=== PATIENT | female | born 1945 | race Caucasian/White ===

== ENCOUNTER 2016-11-07 13:35 | Outpatient (CLI) | payer MEDICARE ==
[2016-11-07 14:22] LABS: Bilirubin Negative (Negative); Blood, Urine Negative (Negative); Glucose, Urine (Dipstick) Negative (Negative); Ketone, Urine Negative (Negative); Nitrite Negative (Negative); Protein, Urine (Dipstick) Negative (Neg-Trace); Urobilinogen 0.2 mg/dL (0.2-1.0)
[2016-11-07 14:24] LABS: Bacteria/HPF Rare-Few HPF (None Seen); RBC/HPF None Seen HPF (0-3); WBC/HPF 0-3 HPF (0-3)
== END 2016-11-07 13:36 | disposition home or self-care (01) ==
LOC: NAV LAB 13:35
PROVIDERS: ATTEND Urology
DX: N39.0 Urinary tract infection, site not specified (principal); N39.41 Urge incontinence
CPT/HCPCS: 81001; 87086

== ENCOUNTER 2016-12-25 10:54 | Outpatient (CLI) | payer MEDICARE ==
[2016-12-25 11:42] LABS: Bilirubin Negative (Negative); Blood, Urine Moderate (Negative); Glucose, Urine (Dipstick) Negative (Negative); Ketone, Urine Negative (Negative); Nitrite Negative (Negative); Protein, Urine (Dipstick) Trace mg/dL (Neg-Trace); Urobilinogen 0.2 mg/dL (0.2-1.0)
[2016-12-25 12:08] LABS: Bacteria/HPF 2+ HPF (None Seen)
== END 2016-12-25 10:55 | disposition home or self-care (01) ==
LOC: NAV LAB 10:54
PROVIDERS: ATTEND Urology
DX: R35.0 Frequency of micturition (principal)
CPT/HCPCS: 81001; 87077; 87086

== ENCOUNTER 2017-02-13 09:38 | Outpatient (CLI) | payer MEDICARE ==
[2017-02-13 10:08] LABS: Bilirubin Negative (Negative); Blood, Urine Negative (Negative); Clarity Slightly Cloudy (Clear); Glucose, Urine (Dipstick) Negative (Negative); Leukocyte Small (Negative); Nitrite Positive (Negative); Protein, Urine (Dipstick) Negative (Neg-Trace); Urobilinogen 0.2 mg/dL (0.2-1.0); pH, Urine 6.5 (5.0-9.0)
[2017-02-13 10:18] LABS: Bacteria/HPF 2+ HPF (None Seen); RBC/HPF None Seen HPF (0-3); Squamous Epithelial 0-3 HPF (0-3); WBC/HPF 21-50 HPF (0-3)
[2017-02-13 10:19] LABS: Other Microscopic Description NO
== END 2017-02-13 09:39 | disposition home or self-care (01) ==
LOC: NAV LAB 09:38
PROVIDERS: ATTEND Urology
DX: N39.0 Urinary tract infection, site not specified (principal)
CPT/HCPCS: 81001; 87086

== ENCOUNTER 2017-02-13 12:17 | Inpatient (IN) | payer MEDICARE ==
[2017-02-13] MEDS ORDERED: Sodium Chloride 0.9% 1,000 ML ONE ×2 (12:41→13:37)
[2017-02-13] MEDS ORDERED: Sodium Chloride 0.9% 100 ML ONE (13:08)
[2017-02-13] MEDS ORDERED: cefTRIAXone\\ROCEPHIN 2 GM VIAL ONE (13:08)
[2017-02-13 13:17] LABS: Mean Corpuscular HGB CONC 32.5 g/dL (32.0-36.0); Mean Corpuscular Volume 86.1 fl (81.0-99.0); Mean Platelet Volume 6.7 fL (7.4-10.4); Platelet Count 385 thou/uL (130-400); RBC Distribution Width 15.5 % (11.5-14.5); Red Blood Cell (RBC) Count 4.29 mill/uL (4.20-5.40); White Blood Cell (WBC) Count 22.3 thou/uL (4.8-10.8)
[2017-02-13] MEDS ORDERED: Acetaminophen 500 MG TAB ONE (13:20)
[2017-02-13 13:24] LABS: ALT (SGPT) 13 U/L (0-55); AST (SGOT) 18 U/L (5-34); Albumin 3.5 g/dL (3.4-4.8); Alkaline Phosphatase 104 U/L (40-150); Anion Gap 16 mmol/L (10-20); BUN (Urea Nitrogen) 21 mg/dL (9.8-20.1); Bilirubin, Total 0.4 mg/dL (0.2-1.2); Calc. Creatinine Clearance 0 mL/min (70-130); Calcium 9.7 mg/dL (7.8-10.44); Carbon Dioxide 25 mmol/L (23-31); Chloride 101 mmol/L (98-107); Estimated GFR-MDRD 51; Globulin 3.6 g/dL (2.4-3.5); Glucose 112 mg/dL (83-110); Potassium 4.2 mmol/L (3.5-5.1); Protein, Total 7.1 g/dL (5.8-8.1); Sodium 138 mmol/L (136-145)
[2017-02-13 13:34] LABS: Anisocytosis SLIGHT = 6-15 cells (100X) (0-5/hpf); Band 9 % (5-11); Lymphocytes 7 % (21-51); MDiff Complete? YES; Monocytes 2 % (0-10); Neutrophil 82 % (42-75); PLT Morphology Comment Appears Adequate
[2017-02-13] MEDS: Sodium Chloride 0.9% 1,000 ML IV SCH ×3 (15:21→22:24)
[2017-02-13 16:21] VITALS: BMI 29.6
[2017-02-13 18:35] LABS: Anion Gap 15 mmol/L (10-20); Globulin 2.7 g/dL (2.4-3.5)
[2017-02-13 18:38] LABS: ALT (SGPT) 8 U/L (0-55); AST (SGOT) 14 U/L (5-34); Albumin 2.7 g/dL (3.4-4.8); Alkaline Phosphatase 78 U/L (40-150); BUN (Urea Nitrogen) 17 mg/dL (9.8-20.1); Bilirubin, Total 0.2 mg/dL (0.2-1.2); Calc. Creatinine Clearance 71 mL/min (70-130); Carbon Dioxide 20 mmol/L (23-31); Chloride 109 mmol/L (98-107); Estimated GFR-MDRD 67; Glucose 113 mg/dL (83-110); Potassium 3.7 mmol/L (3.5-5.1); Protein, Total 5.4 g/dL (5.8-8.1); Sodium 140 mmol/L (136-145)
[2017-02-13] MEDS ORDERED: Ondansetron ODT 4 MG TAB PO PRN (19:35)
[2017-02-13] MEDS ORDERED: Nitroglycerin 0.4 MG TAB (25 Tab Bottle) SL PRN (19:37)
[2017-02-13] MEDS: Famotidine 20 MG TAB PO SCH (20:18)
[2017-02-13] MEDS: Gabapentin 300 MG CAP PO SCH (20:18)
[2017-02-13] MEDS: Ciprofloxacin 500 MG TAB PO SCH (20:19)
[2017-02-14 05:16] LABS: #Eosinphils 0.1 thou/uL (0.0-0.7); #Monocytes 0.6 thou/uL (0.11-0.59); #Neutrophils 10.9 thou/uL (1.40-6.50); %Basophils 0.2 % (0.0-1.0); %Eosinophils 1.1 % (0.0-10.0); %Lymphocytes 14.7 % (21.0-51.0); %Monocytes 4.4 % (0.0-10.0); %Neutrophils 79.6 % (42.0-75.0); Hemoglobin 9.5 g/dL (12.0-16.0); Mean Corpuscular HGB CONC 31.8 g/dL (32.0-36.0); Mean Corpuscular Hemoglobin 27.4 pg (27.0-31.0); Mean Corpuscular Volume 86.2 fl (81.0-99.0); Mean Platelet Volume 6.6 fL (7.4-10.4); Platelet Count 278 thou/uL (130-400); RBC Distribution Width 15.4 % (11.5-14.5); Red Blood Cell (RBC) Count 3.47 mill/uL (4.20-5.40); White Blood Cell (WBC) Count 13.7 thou/uL (4.8-10.8)
[2017-02-14 05:27] LABS: Lactic Acid 0.9 mmol/L (0.5-2.2)
[2017-02-14 05:31] LABS: Anion Gap 13 mmol/L (10-20); BUN (Urea Nitrogen) 12 mg/dL (9.8-20.1); Calc. Creatinine Clearance 78 mL/min (70-130); Carbon Dioxide 23 mmol/L (23-31); Chloride 108 mmol/L (98-107); Estimated GFR-MDRD 74; Glucose 108 mg/dL (83-110); Potassium 3.9 mmol/L (3.5-5.1); Sodium 140 mmol/L (136-145)
[2017-02-14] MEDS: Sodium Chloride 0.9% 1,000 ML IV SCH ×2 (05:33→13:39)
[2017-02-14] MEDS ORDERED: LYCOPENE PO SCH (09:00)
[2017-02-14] MEDS ORDERED: [UNRECOGNIZED DRUG - OTHER] PO SCH (09:00)
[2017-02-14] MEDS ORDERED: LUT PO SCH (09:00)
[2017-02-14] MEDS ORDERED: MULTIVIT MIN PO SCH (09:00)
[2017-02-14] MEDS: Gabapentin 300 MG CAP PO SCH ×2 (09:20→20:25)
[2017-02-14] MEDS: Carvedilol 3.125 MG TAB PO SCH ×2 (09:20→17:27)
[2017-02-14] MEDS: Multivitamin W/ Minerals 1 TAB PO SCH (09:20)
[2017-02-14] MEDS: Estradiol 1 MG TAB PO SCH (09:20)
[2017-02-14] MEDS: Famotidine 20 MG TAB PO SCH ×2 (09:20→20:24)
[2017-02-14] MEDS: Ciprofloxacin 500 MG TAB PO SCH ×2 (12:29→20:24)
[2017-02-14] MEDS: cefTRIAXone\\ROCEPHIN 2 GM in Sodium Chloride 0.9% 100 ML IVPB SCH (12:36)
[2017-02-14] MEDS ORDERED: Gabapentin 300 MG CAP PO SCH (15:00)
[2017-02-14] MEDS ORDERED: rOPINIRole HCl 2 MG TAB PO SCH (21:00)
[2017-02-15 05:17] LABS: #Basophils 0.1 thou/uL (0.0-0.2); #Eosinphils 0.2 thou/uL (0.0-0.7); #Lymphocytes 2.2 thou/uL (1.20-3.40); #Monocytes 0.7 thou/uL (0.11-0.59); #Neutrophils 8.2 thou/uL (1.40-6.50); %Basophils 0.9 % (0.0-1.0); %Eosinophils 1.7 % (0.0-10.0); %Lymphocytes 19.1 % (21.0-51.0); %Monocytes 6.5 % (0.0-10.0); %Neutrophils 71.8 % (42.0-75.0); Mean Corpuscular Hemoglobin 27.5 pg (27.0-31.0); Mean Platelet Volume 6.8 fL (7.4-10.4); Platelet Count 335 thou/uL (130-400); RBC Distribution Width 15.7 % (11.5-14.5); Red Blood Cell (RBC) Count 3.62 mill/uL (4.20-5.40); White Blood Cell (WBC) Count 11.4 thou/uL (4.8-10.8)
[2017-02-15] MEDS: Famotidine 20 MG TAB PO SCH (08:46)
[2017-02-15] MEDS: Multivitamin W/ Minerals 1 TAB PO SCH (08:47)
[2017-02-15] MEDS: Carvedilol 3.125 MG TAB PO SCH (08:47)
[2017-02-15] MEDS: Gabapentin 300 MG CAP PO SCH (08:47)
[2017-02-15] MEDS: Ciprofloxacin 500 MG TAB PO SCH (08:47)
[2017-02-15] MEDS: Estradiol 1 MG TAB PO SCH (08:47)
[2017-02-15 11:21] VITALS: BP 151/82; TEMP 97.5
[2017-02-15] MEDS: cefTRIAXone\\ROCEPHIN 2 GM in Sodium Chloride 0.9% 100 ML IVPB SCH (12:00)
--- NOTE | 2017-02-15 12:10 | PRG ---
DATE OF SERVICE: 02/14/2017 SUBJECTIVE: The patient feels better, no nausea or vomiting, good appetite. No fever or chills, in creased strength, no dizziness or lightheadedness. She is asking when she can be discharged home. OBJECTIVE: VITAL SIGNS: Blood pressure is 137/67, O2 sats 98%, respirations 18, pulse 85, afebrile. LUNGS: Clear. CARDIAC: Shows regular rhythm. LABORATORY: Shows white count 13,700, hematocrit 29, hemoglobin 9.5. Lactate is down to 0.9. Sodi um 140, potassium 3.9, chloride 108, bicarbonate 23, BUN 12, creatinine 0.77. Urine culture is stil l pending. ASSESSMENT: Resolved sepsis, resolving urinary tract infection, stable hypertension, coronary arter y disease, persistent reflux, persistent restless leg syndrome, sleep apnea with refusal of CPAP. PLAN: Change Ropinirole to 1 mg at the afternoon and 3 mg at night. Continue Rocephin and Cipro un til cultures return and discontinue Rocephin afterwards. Monitor on oral Cipro. Discontinue IV flu ids. Possibly discharge tomorrow.
[2017-02-15] MEDS ORDERED: rOPINIRole HCl 2 MG TAB PO SCH (15:00)
--- NOTE | 2017-02-15 19:46 | HP ---
DATE OF ADMISSION: 02/13/2017 REASON CHIEF COMPLAINT: Fever, chills, urinary tract infection, sepsis. HISTORY OF PRESENT ILLNESS: Patient is a 71-year-old white female with history of recurrent urinary tract infections and episodes of pyelonephritis and sepsis associated with initial urinary retentio n with the last admission several months ago to [facility]. She had been doing well, been followed up with Dr. Newby with no evidence of urinary retention on last visit, but began to have dysur ia on the date of admission, was contacted Dr. Newby's office, had urine culture done, but lynette rtly after having it done she began to have chills and fever, was brought to the emergency room, was found to have temperature to 102. White count was 22,000, hematocrit was 36, hemoglobin 12. Lacti c acid was 2.5. However, apparently Dr. Dr. Newby was contacted by the ER doctor and she felt she could be admitted down here just with 24 hours IV antibiotics and should respond appropriately. She was given 2 liters of saline and was admitted to the floor. However, after admission to the [facility] her lactic acid went up further to 2.9. She continued to have fever and chills; however, vital signs only increased to 102/50. She was given another liter of saline as her BNP was normal at 103 and her blood pressure did improve back again 143/58. She was given IV Rocephin, started on oral C ipro in the emergency room and this was continued. Cultures were pending. PAST MEDICAL HISTORY: As mentioned above, was remarkable for recurrent urinary tract infection, his tory of nephrolithiasis, followed by Dr. Dr. Newby, history of coronary artery disease, myocar dial infarction, hypertension, gastroesophageal reflux. Positive for sleep apnea. PAST SURGICAL HISTORY: Positive for bilateral SI joint injection being followed by Dr. Segovia, l umbar sacral laminectomy and a spinal cord stimulator trial with no improvement. Surgical history i s also positive for total abdominal hysterectomy and bladder suspension 73, bladder wash and cystosc opy 12/[address] Newby. FAMILY MEDICAL HISTORY: Positive for coronary disease and hypertension. SOCIAL HISTORY: She is nonsmoker, nondrinker. ALLERGIES: She has history of allergies to IBUPROFEN only. REVIEW OF SYSTEMS: HEENT: She has recurrent headaches well controlled. She has no change in her v ision or hearing, no hoarseness or dysphagia. Pulmonary: She denies cough, sputum production, pneu monia, asthma, tuberculosis. Cardiovascular: She denies chest pain at this time, shortness of nathanael th, but has had recurrent chest pain in the past controlled with nitroglycerin, has coronary cathete rization has shown nonsurgical disease after initial stent placement years ago. PHYSICAL EXAMINATION: GENERAL: Patient is an elderly white female, appears slightly lethargic, but responds appropriately , is in no acute distress, able to give history and answer questions. VITAL SIGNS: Show her to have a blood pressure of mentioned above 102/50, but improved by my visit to 143/58, temperature was 96, pulse is 86, respirations 20, O2 sats 96%. HEENT: Pupils are equal, round, and react to light and accommodation. Sclerae are anicteric. Conj unctivae pale. Oral mucous membranes well hydrated. NECK: Supple. There are no nodes or masses. JVP is not elevated. LUNGS: Clear. CARDIAC: Regular rhythm. No gallops or murmurs. ABDOMEN: Soft, nontender with no masses or organomegaly. SKIN/EXTREMITIES: Display no edema, clubbing, cyanosis. NEUROLOGIC: Shows normal sensation, strength in all extremities. ASSESSMENT AND PLAN: Patient is a 71-year-old white female with a history of recurrent urinary trac t infections secondary to mixed stress and urgency incontinence with no evidence of renal lithiasis or hydronephrosis or cancer on cystoscopy and CT scan, being followed by Dr. Newby with most r ecent admission 3 months ago for urinary tract infection and sepsis. This time she presents with si milar symptoms, acute onset of dysuria, fever, chills, elevated lactate, leukocytosis and hypotensio n consistent with sepsis, early septic shock secondary to probable recurrent urinary tract infection . She has been admitted to the hospital, treated with sepsis protocol with 3 liters of saline great er than 30 mL per kilogram, has been started on Rocephin and Cipro, appears to be stable at this sumit e. Her renal function at this time stable with initial creatinine 0.84, glucose 113. Sodium 140, p otassium 3.7, chloride 109, bicarbonate 20, BUN 17. Magnesium level 0.2, serum total protein 5.4, a lbumin 2.7. White count as mentioned above was 22,300, hematocrit 36, hemoglobin 12. Urine culture is pending. Chest x-ray not been done. Septic shock, most likely due to recurrent urinary tract infection in a patient with mixed incontine nce who will be continued on IV fluids at 125 mL an hour of normal saline and has been given at 30 m L/kg protocol sepsis, fluid challenge. Appears to respond, will be continued on Rocephin and Cipro, as she has responded this past until cultures return. Blood cultures are pending. We will restart her home medications for coronary disease, but appeared to have no evidence of ischemia at this sumit e. We will also continue medications for reflux and for restless leg syndrome. We will discuss uro logical further evaluation with patient when stable.
--- NOTE | 2017-02-15 23:35 | DIS ---
DATE OF ADMISSION: 02/13/2017 DATE OF DISCHARGE: 02/15/2017 FINAL DIAGNOSES: 1. Sepsis secondary to urinary tract infection secondary to Klebsiella with resolved septic shock o n IV fluids for sepsis protocol and IV antibiotics, now on oral antibiotics and doing well. 2. Coronary disease, status post stent and medical treatment with no symptoms. 3. Degenerative disk disease being followed by Dr. Segovia with no pain. 4. Recurrent mixed stress and urge incontinence being followed by Dr. Newby with possible sec ond opinion requested by patient with Dr. Vasquez. MEDICATIONS ON DISCHARGE: Include carvedilol 3.125 twice daily, aspirin 81 daily, Cipro 500 twice d aily for a full 10-day course, estradiol 1 mg daily, famotidine 20 twice daily, gabapentin 600 and a t 3:00 and 1800 at night, 300 in the morning, Protonix 40 twice daily, nitroglycerin sublingual as n eeded, propranolol 3 mg at night 1 mg at 3:00 p.m. HOSPITAL COURSE: Patient is a 71-year-old white female who presents with fever, chills, leukocytosi s and elevated lactate of 2.1., who was started on sepsis protocol in the emergency room and transfe rred to the floor. She did have increased lactate, was given another liter of saline, when blood pr essure dropped to 102/50, but then began to improve, was continued on Rocephin and Cipro for probabl e sepsis secondary to urinary tract infection. Blood cultures returned negative, but urine culture did return Klebsiella sensitive to the Rocephin and Cipro. Rocephin was discontinued. Her white co unt improved to 13,700 and to 11,400. Hemoglobin decreased from 12 to 10, but then remains 12 to 9. 5 and then stabilized at 10, hematocrit was 31. Renal function remained normal with a BUN of 12, cr eatinine 0.77 on discharge. Sodium 140, potassium 3.9, chloride 108, bicarbonate 23. Lactate as me ntioned above, increased to 2.9, but then decreased to 0.9 on discharge. The patient was eating wel l, ambulating at vee. Lungs were clear. Cardiac examination showed regular rhythm. No gallops or murmurs. Cardiac enzymes returned negative. BNP was slightly elevated at 103. ASSESSMENT: 1. Resolved septic shock secondary to urinary tract infection with Klebsiella in a patient with rec urrent mixed stress and urge incontinence. 2. History of coronary artery disease, status post stent. No evidence of recurrent ischemia. 3. Severe degenerative disk disease, chronic pain in the back being followed by Dr. Segovia with occasional epidural steroid injection. 4. Severe reflux, on Protonix. 5. Sleep apnea and restless leg syndrome, refusal of CPAP, on ropinirole. PLAN: 1. Discharge home on Cipro 500 twice daily for a full 10-day course. 2. Follow up with urologist either Dr. Newby or Dr. Vasquez for further evaluation with fitz r studies of the bladder. 3. Continue all home medications.
== END 2017-02-15 12:30 | disposition home or self-care (01) | DRG 871 ==
LOC: NAV ERS 12:17 → NAV ACUTE 14:40
PROVIDERS: ADMIT Internal Medicine; ATTEND Internal Medicine
DX: A41.9 Sepsis, unspecified organism (principal); R65.21 Severe sepsis with septic shock; N39.0 Urinary tract infection, site not specified; B96.1 Klebsiella pneumoniae [K. pneumoniae] as the cause of diseases classified elsewhere; N39.46 Mixed incontinence; I25.10 Atherosclerotic heart disease of native coronary artery without angina pectoris; I25.2 Old myocardial infarction; I10 Essential (primary) hypertension; K21.9 Gastro-esophageal reflux disease without esophagitis; G47.30 Sleep apnea, unspecified; G25.81 Restless legs syndrome; Z88.8 Allergy status to other drugs, medicaments and biological substances; Z95.5 Presence of coronary angioplasty implant and graft
CPT/HCPCS: 36415; 80048; 80053; 81001; 83605; 83880; 85025; 87040; 87077; 87086; 87186; A4216; J0696; J7050

== ENCOUNTER 2017-02-24 08:36 | Emergency (ER) | payer MEDICARE ==
[2017-02-24] MEDS ORDERED: diphenhydrAMINE HCl 25 MG CAP ONE (09:07)
== END 2017-02-24 09:50 | disposition home or self-care (01) ==
LOC: NAV ERS 08:36
DX: T78.3XXA Angioneurotic edema, initial encounter (principal); I25.10 Atherosclerotic heart disease of native coronary artery without angina pectoris; Z79.899 Other long term (current) drug therapy; Z79.82 Long term (current) use of aspirin
CPT/HCPCS: 99283

== ENCOUNTER 2017-04-09 09:47 | Outpatient (CLI) | payer MEDICARE ==
[2017-04-09 10:12] LABS: #Basophils 0.1 thou/uL (0.0-0.2); #Eosinphils 0.1 thou/uL (0.0-0.7); #Lymphocytes 1.3 thou/uL (1.20-3.40); #Monocytes 0.7 thou/uL (0.11-0.59); #Neutrophils 11.2 thou/uL (1.40-6.50); %Basophils 0.5 % (0.0-1.0); %Eosinophils 0.7 % (0.0-10.0); %Monocytes 4.9 % (0.0-10.0); Hemoglobin 10.3 g/dL (12.0-16.0); Mean Corpuscular HGB CONC 31.2 g/dL (32.0-36.0); Mean Corpuscular Hemoglobin 26.2 pg (27.0-31.0); Platelet Count 306 thou/uL (130-400); RBC Distribution Width 13.8 % (11.5-14.5); Red Blood Cell (RBC) Count 3.94 mill/uL (4.20-5.40); White Blood Cell (WBC) Count 13.4 thou/uL (4.8-10.8)
[2017-04-09 10:14] LABS: Lactic Acid 1.7 mmol/L (0.5-2.2)
[2017-04-09 10:19] LABS: Anion Gap 15 mmol/L (10-20); BUN (Urea Nitrogen) 17 mg/dL (9.8-20.1); Calc. Creatinine Clearance 0 mL/min (70-130); Calcium 8.9 mg/dL (7.8-10.44); Carbon Dioxide 23 mmol/L (23-31); Chloride 100 mmol/L (98-107); Estimated GFR-MDRD 72; Glucose 108 mg/dL (83-110); Potassium 4.2 mmol/L (3.5-5.1); Sodium 134 mmol/L (136-145)
[2017-04-09 11:50] LABS: Bilirubin Negative (Negative); Blood, Urine Negative (Negative); Clarity Clear (Clear); Glucose, Urine (Dipstick) Negative (Negative); Leukocyte Negative (Negative); Nitrite Negative (Negative); Protein, Urine (Dipstick) Negative (Neg-Trace); Urobilinogen 0.2 mg/dL (0.2-1.0)
== END 2017-04-09 09:48 | disposition home or self-care (01) ==
LOC: NAVSJIPCSP 09:47 → NAV LAB 09:48
PROVIDERS: ATTEND Internal Medicine
DX: N39.0 Urinary tract infection, site not specified (principal)
CPT/HCPCS: 36415; 80048; 81003; 83605; 85025; 87086

== ENCOUNTER 2017-06-14 07:23 | Emergency (ER) | payer MEDICARE ==
[2017-06-14] MEDS ORDERED: Albuterol Sulfate 2.5 mg/0.5 ml Neb ONE (07:36)
[2017-06-14] MEDS ORDERED: Sodium Chloride 0.9% 1,000 ML ONE ×2 (08:13→10:01)
[2017-06-14] MEDS ORDERED: Acetaminophen 500 MG TAB ONE (08:25)
[2017-06-14 08:26] LABS: #Eosinphils 0.1 thou/uL (0.0-0.7); #Monocytes 0.5 thou/uL (0.11-0.59); #Neutrophils 11.8 thou/uL (1.40-6.50); %Basophils 0.3 % (0.0-1.0); %Eosinophils 0.6 % (0.0-10.0); %Lymphocytes 7.2 % (21.0-51.0); %Monocytes 3.3 % (0.0-10.0); %Neutrophils 88.5 % (42.0-75.0); Hemoglobin 11.1 g/dL (12.0-16.0); Mean Corpuscular HGB CONC 30.6 g/dL (32.0-36.0); Mean Corpuscular Hemoglobin 25.1 pg (27.0-31.0); Mean Platelet Volume 6.6 fL (7.4-10.4); Platelet Count 342 thou/uL (130-400); RBC Distribution Width 15.6 % (11.5-14.5); Red Blood Cell (RBC) Count 4.42 mill/uL (4.20-5.40); White Blood Cell (WBC) Count 13.4 thou/uL (4.8-10.8)
[2017-06-14 08:44] LABS: Troponin I 0.012 ng/mL (< 0.028)
--- NOTE | 2017-06-14 08:45 | RAD ---
CHEST RADIOGRAPH SINGLE VIEW COMPARISON: 10/31/2016 INDICATION: Fever. FINDINGS: There are bibasilar patchy densities at each lung. The cardiac silhouette is accentuated by portabl e technique. Mild vascular prominence. There is osseous degenerative change. IMPRESSION: Mild bibasilar patchy opacities. This could relate to edema or pneumonitis. Consider a two-view est radiograph as follow-up. POS: [facility]
[2017-06-14 08:48] LABS: Bilirubin Negative (Negative); Blood, Urine Negative (Negative); Clarity Clear (Clear); Glucose, Urine (Dipstick) Negative (Negative); Leukocyte Negative (Negative); Nitrite Negative (Negative); Protein, Urine (Dipstick) Negative (Neg-Trace); Specific Gravity, Urine 1.015 (1.005-1.030); Urobilinogen 0.2 mg/dL (0.2-1.0)
[2017-06-14 08:49] LABS: ALT (SGPT) 12 U/L (8-55); AST (SGOT) 25 U/L (5-34); Albumin 3.8 g/dL (3.4-4.8); Alkaline Phosphatase 140 U/L (40-150); Anion Gap 18 mmol/L (10-20); BUN (Urea Nitrogen) 16 mg/dL (9.8-20.1); Bilirubin, Total 0.4 mg/dL (0.2-1.2); Calc. Creatinine Clearance 0 mL/min (70-130); Carbon Dioxide 24 mmol/L (23-31); Chloride 100 mmol/L (98-107); Estimated GFR-MDRD 63; Globulin 3.7 g/dL (2.4-3.5); Glucose 114 mg/dL (83-110); Potassium 4.4 mmol/L (3.5-5.1); Protein, Total 7.5 g/dL (6.0-8.3); Sodium 138 mmol/L (136-145)
[2017-06-14] MEDS ORDERED: cefTRIAXone\\ROCEPHIN 2 GM VIAL ONE (08:50)
[2017-06-14] MEDS ORDERED: Sodium Chloride 0.9% 0 ML ONE (08:50)
[2017-06-14] MEDS ORDERED: Sodium Chloride 0.9% 100 ML ONE ×2 (08:52→09:51)
[2017-06-14] MEDS ORDERED: Azithromycin 500 MG VIAL ONE ×2 (09:51→10:00)
[2017-06-14] MEDS ORDERED: Sodium Chloride 0.9% 250 ML 250 ML ONE (10:00)
--- NOTE | 2017-06-14 10:27 | CT ---
CT ARTERIOGRAM CHEST WITH IV CONTRAST AND 3D MIP IMAGING: HISTORY: Dyspnea. FINDINGS: There is good contrast opacification of the pulmonary arteries and thoracic aorta with bovine origin of the great vessels from the aortic arch. Dense infiltrate is present at the left perihilar locat ion in the left lung base. Mild patchy infiltrate is present centrally within the right lung. No p leural fluid, pneumothorax, or mediastinal adenopathy are apparent. IMPRESSION: 1. No Ct evidence of pulmonary embolus. 2. Patchy bilateral infiltrates. Clinical correlation regarding other signs and symptoms of multif ocal pneumonitis is required. POS: [facility]
== END 2017-06-14 10:54 | disposition short-term general hospital (02) ==
LOC: NAV ERS 07:23
DX: A41.9 Sepsis, unspecified organism (principal); J18.9 Pneumonia, unspecified organism; I11.9 Hypertensive heart disease without heart failure; I25.10 Atherosclerotic heart disease of native coronary artery without angina pectoris; I25.2 Old myocardial infarction; Z79.82 Long term (current) use of aspirin; Z79.899 Other long term (current) drug therapy
CPT/HCPCS: 36415; 71010; 71275; 80053; 81003; 82553; 83605; 83880; 84484; 85025; 85379; 87040; 87081; 87086; 87430; 93005; 94640; 94760; 96360; 96361; 96365; 96367; J0456; J0696; J7050; J7611

== ENCOUNTER 2017-07-06 16:16 | Emergency (ER) | payer MEDICARE ==
[2017-07-06 17:06] LABS: Bilirubin Negative (Negative); Blood, Urine Negative (Negative); Clarity Clear (Clear); Glucose, Urine (Dipstick) Negative (Negative); Leukocyte Negative (Negative); Nitrite Negative (Negative); Protein, Urine (Dipstick) Negative (Neg-Trace); Urobilinogen 0.2 mg/dL (0.2-1.0)
--- NOTE | 2017-07-06 17:08 | RAD ---
PORTABLE SEMIUPRIGHT FRONTAL CHEST RADIOGRAPH 07/06/17 COMPARISON: 06/14/17. HISTORY: Fever and cough. FINDINGS: There is lobulation and elevation of right hemidiaphragm, stable. heart and mediastinal contours wit hin normal limits. No pneumothorax, pleural fluid, focal consolidation or alveolar edema. IMPRESSION: No acute findings. POS: [facility]
[2017-07-06] MEDS ORDERED: Acetaminophen 500 MG TAB ONE (17:10)
[2017-07-06] MEDS ORDERED: Sodium Chloride 0.9% 1,000 ML ONE (17:13)
[2017-07-06 17:20] LABS: ALT (SGPT) 12 U/L (8-55); AST (SGOT) 16 U/L (5-34); Albumin 3.9 g/dL (3.4-4.8); Alkaline Phosphatase 100 U/L (40-150); Anion Gap 18 mmol/L (10-20); BUN (Urea Nitrogen) 18 mg/dL (9.8-20.1); Bilirubin, Total 0.7 mg/dL (0.2-1.2); Calc. Creatinine Clearance 0 mL/min (70-130); Calcium 9.1 mg/dL (7.8-10.44); Carbon Dioxide 22 mmol/L (23-31); Chloride 101 mmol/L (98-107); Estimated GFR-MDRD 65; Globulin 3.3 g/dL (2.4-3.5); Glucose 100 mg/dL (83-110); Potassium 4.2 mmol/L (3.5-5.1); Protein, Total 7.2 g/dL (6.0-8.3); Sodium 137 mmol/L (136-145)
[2017-07-06 17:25] LABS: Hemoglobin 11.4 g/dL (12.0-16.0); Lymphocytes 4 % (21-51); MDiff Complete? YES; Mean Corpuscular HGB CONC 30.6 g/dL (32.0-36.0); Mean Corpuscular Hemoglobin 24.7 pg (27.0-31.0); Mean Corpuscular Volume 80.9 fl (81.0-99.0); Mean Platelet Volume 6.5 fL (7.4-10.4); Monocytes 3 % (0-10); Neutrophil 92 % (42-75); Platelet Count 352 thou/uL (130-400); RBC Distribution Width 15.4 % (11.5-14.5); Reactive Lymphocytes 1 % (0-10); Stomatocytes SLIGHT = 2-5 cells (100X) (0-1/hpf); White Blood Cell (WBC) Count 22.4 thou/uL (4.8-10.8)
[2017-07-06] MEDS ORDERED: Piperacillin/Tazobactam 4.5 GM in Sodium Chloride 0.9% 100 ML IVPB SCH ×4 (18:00)
== END 2017-07-06 19:00 | disposition short-term general hospital (02) ==
LOC: NAV ERS 16:16
DX: A41.9 Sepsis, unspecified organism (principal); Z79.82 Long term (current) use of aspirin; Z79.899 Other long term (current) drug therapy; Z87.440 Personal history of urinary (tract) infections; Z87.01 Personal history of pneumonia (recurrent)
CPT/HCPCS: 71010; 80053; 81003; 83605; 85025; 87040; 87077; 87149; 87186; 96374; 99285; J2543; J7050

== ENCOUNTER 2017-08-30 12:34 | Emergency (ER) | payer MEDICARE ==
[2017-08-30] MEDS ORDERED: Sodium Chloride 0.9% 1,000 ML ONE (12:59)
[2017-08-30 13:16] LABS: #Basophils 0.1 thou/uL (0.0-0.2); #Lymphocytes 1.5 thou/uL (1.20-3.40); #Monocytes 1.2 thou/uL (0.11-0.59); #Neutrophils 19.2 thou/uL (1.40-6.50); %Basophils 0.3 % (0.0-1.0); %Lymphocytes 6.8 % (21.0-51.0); %Monocytes 5.4 % (0.0-10.0); %Neutrophils 87.6 % (42.0-75.0); Hemoglobin 10.5 g/dL (12.0-16.0); Mean Corpuscular HGB CONC 30.3 g/dL (32.0-36.0); Mean Corpuscular Hemoglobin 25.3 pg (27.0-31.0); Mean Corpuscular Volume 83.6 fl (81.0-99.0); Mean Platelet Volume 6.8 fL (7.4-10.4); Platelet Count 383 thou/uL (130-400); RBC Distribution Width 14.2 % (11.5-14.5); Red Blood Cell (RBC) Count 4.14 mill/uL (4.20-5.40); White Blood Cell (WBC) Count 21.9 thou/uL (4.8-10.8)
[2017-08-30 13:29] LABS: ALT (SGPT) 16 U/L (8-55); AST (SGOT) 22 U/L (5-34); Albumin 3.9 g/dL (3.4-4.8); Alkaline Phosphatase 113 U/L (40-150); Anion Gap 18 mmol/L (10-20); BUN (Urea Nitrogen) 21 mg/dL (9.8-20.1); Bilirubin, Total 0.4 mg/dL (0.2-1.2); Calc. Creatinine Clearance 0 mL/min (70-130); Calcium 9.2 mg/dL (7.8-10.44); Carbon Dioxide 23 mmol/L (23-31); Chloride 100 mmol/L (98-107); Estimated GFR-MDRD 66; Globulin 3.3 g/dL (2.4-3.5); Glucose 90 mg/dL (83-110); Potassium 3.8 mmol/L (3.5-5.1); Protein, Total 7.2 g/dL (6.0-8.3); Sodium 137 mmol/L (136-145)
--- NOTE | 2017-08-30 13:38 | RAD ---
PA AND LATERAL CHEST XRAY: DATE: . HISTORY: Fever and chills. Urinary frequency. Cough predominantly at nighttime. COMPARISON: 07/06/17. FINDINGS: Cardiac silhouette and pulmonary vasculature are within normal limits. Minimal linear densities are seen at each lung base and right mid lung zone probably reflective of mild atelectasis. Lungs are otherwise clear. There are degenerative change seen in the spine. There has been no interval howe e from the prior exam. IMPRESSION: No acute cardiopulmonary process. POS: [facility]
[2017-08-30 14:05] LABS: Bilirubin Negative (Negative); Blood, Urine Negative (Negative); Clarity Hazy (Clear); Glucose, Urine (Dipstick) Negative (Negative); Leukocyte Small (Negative); Nitrite Positive (Negative); Protein, Urine (Dipstick) Negative (Neg-Trace); Urobilinogen 0.2 mg/dL (0.2-1.0); pH, Urine 5.5 (5.0-9.0)
[2017-08-30 14:09] LABS: Bacteria/HPF 4+ HPF (None Seen); RBC/HPF 0-3 HPF (0-3); WBC/HPF 21-50 HPF (0-3)
[2017-08-30] MEDS ORDERED: cefTRIAXone\\ROCEPHIN 2 GM VIAL ONE (14:23)
[2017-08-30] MEDS ORDERED: Sodium Chloride 0.9% 100 ML ONE (14:23)
== END 2017-08-30 14:48 | disposition short-term general hospital (02) ==
LOC: NAV ERS 12:34
DX: R50.9 Fever, unspecified (principal); R35.0 Frequency of micturition; I10 Essential (primary) hypertension; I25.10 Atherosclerotic heart disease of native coronary artery without angina pectoris; Z79.82 Long term (current) use of aspirin; Z79.899 Other long term (current) drug therapy
CPT/HCPCS: 71020; 80053; 81003; 81015; 83605; 85025; 87040; 87077; 87086; 87186; 93005; 96361; 96374; J0696; J7050

== ENCOUNTER 2017-12-29 23:31 | Emergency (ER) | payer MEDICARE, OTHER ==
[2017-12-30] MEDS ORDERED: Sodium Chloride 0.9% 1,000 ML ONE (00:10)
[2017-12-30] MEDS ORDERED: diphenhydrAMINE 50 MG/ML VIAL ONE (00:10)
== END 2017-12-30 01:10 | disposition home or self-care (01) ==
LOC: NAV ERS 23:31
DX: K14.9 Disease of tongue, unspecified (principal); T42.8X5A Adverse effect of antiparkinsonism drugs and other central muscle-tone depressants, initial encounter; I10 Essential (primary) hypertension; I25.10 Atherosclerotic heart disease of native coronary artery without angina pectoris; Z79.82 Long term (current) use of aspirin; Z79.899 Other long term (current) drug therapy
CPT/HCPCS: 96365; 96375; J1200; J2920; J7050

== ENCOUNTER 2018-04-10 09:00 | Outpatient (CLI) | payer MEDICARE, OTHER ==
--- NOTE | 2018-04-10 10:53 | ULT ---
THYROID ULTRASOUND: DATE: 04/10/18. COMPARISON: None. HISTORY: Disorder of thyroid (E07.9). TECHNIQUE: Multiplanar, conley scale sonographic imaging of the thyroid gland obtained. FINDINGS: Thyroid isthmus measures 3 mm in AP dimension. Right lobe measures 1.4 x 3.8 x 2.0 cm and left lobe measures 1.5 x 3.8 x 1.3 cm. No dominant nodule is seen on either side. Incidental note is made of a 2 mm hypoechoic nodule in the mid right lobe. IMPRESSION: Grossly unremarkable thyroid ultrasound. POS: [facility]
== END 2018-04-10 09:01 | disposition home or self-care (01) ==
LOC: NAV ULT 09:00
PROVIDERS: ATTEND Internal Medicine
DX: E07.9 Disorder of thyroid, unspecified (principal)
CPT/HCPCS: 76536

== ENCOUNTER 2018-05-18 15:46 | Inpatient (IN) | payer MEDICARE ==
--- NOTE | 2018-05-18 16:58 | RAD ---
PORTABLE CHEST: History: Cough, shortness of breath. Comparison: 07-06-17 FINDINGS: Heart size is within normal limits. Increased density is seen in the left mid and lower lung marie s uggesting some infiltrate. IMPRESSION: Suggestion of some developing left sided infiltrate. POS: [facility]
[2018-05-18 17:02] LABS: #Eosinphils 0.1 thou/uL (0.0-0.7); #Lymphocytes 1.5 thou/uL (1.20-3.40); #Monocytes 0.5 thou/uL (0.11-0.59); #Neutrophils 15.1 thou/uL (1.40-6.50); %Basophils 0.2 % (0.0-1.0); %Eosinophils 0.7 % (0.0-10.0); %Lymphocytes 8.7 % (21.0-51.0); %Monocytes 2.8 % (0.0-10.0); %Neutrophils 87.5 % (42.0-75.0); Hemoglobin 9.2 g/dL (12.0-16.0); Mean Corpuscular HGB CONC 29.5 g/dL (32.0-36.0); Mean Corpuscular Hemoglobin 20.4 pg (27.0-31.0); Mean Corpuscular Volume 69.3 fL (78.0-98.0); Mean Platelet Volume 6.4 fL (7.4-10.4); Platelet Count 384 thou/uL (130-400); RBC Distribution Width 16.6 % (11.5-14.5); Red Blood Cell (RBC) Count 4.49 mill/uL (4.20-5.40); White Blood Cell (WBC) Count 17.3 thou/uL (4.8-10.8)
[2018-05-18 17:04] LABS: ALT (SGPT) 13 U/L (8-55); AST (SGOT) 16 U/L (5-34); Albumin 3.5 g/dL (3.4-4.8); Alkaline Phosphatase 74 U/L (40-150); Anion Gap 17 mmol/L (10-20); BUN (Urea Nitrogen) 21 mg/dL (9.8-20.1); Bilirubin, Total 0.3 mg/dL (0.2-1.2); Calc. Creatinine Clearance 0 mL/min (70-130); Calcium 9.3 mg/dL (7.8-10.44); Carbon Dioxide 21 mmol/L (23-31); Chloride 101 mmol/L (98-107); Estimated GFR-MDRD 62; Globulin 3.2 g/dL (2.4-3.5); Glucose 105 mg/dL (83-110); Potassium 3.7 mmol/L (3.5-5.1); Protein, Total 6.7 g/dL (6.0-8.3); Sodium 135 mmol/L (136-145)
[2018-05-18 17:08] LABS: CKMB 1.2 ng/mL (0-6.6); Troponin I Less than 0.010 ng/mL (< 0.028)
[2018-05-18 17:42] LABS: Hypochromia SLIGHT = 6-15 cells (100X) (0-5/hpf); MDiff Complete? YES; Microcytosis MODERATE=15-30 cells (100X) (0-5/hpf); PLT Morphology Comment Appears Adequate
[2018-05-18] MEDS ORDERED: cefTRIAXone\\ROCEPHIN 1 GM VIAL ONE (17:55)
[2018-05-18] MEDS ORDERED: Sodium Chloride 0.9% 250 ML 250 ML ONE (17:57)
[2018-05-18] MEDS ORDERED: Azithromycin 500 MG VIAL ONE (17:57)
[2018-05-18 18:11] LABS: Bilirubin Negative (Negative); Blood, Urine Negative (Negative); Clarity Clear (Clear); Glucose, Urine (Dipstick) Negative (Negative); Leukocyte Large (Negative); Nitrite Negative (Negative); Protein, Urine (Dipstick) Trace mg/dL (Neg-Trace); Urobilinogen 0.2 mg/dL (0.2-1.0); pH, Urine 5.5 (5.0-9.0)
[2018-05-18 18:25] LABS: Bacteria/HPF 2+ HPF (None Seen); RBC/HPF 0-3 HPF (0-3); Squamous Epithelial 0-3 HPF (0-3)
[2018-05-18] MEDS ORDERED: HYDROcodone/Acetaminophen 5/325 mg Tablet PO PRN ×2 (18:35)
[2018-05-18] MEDS ORDERED: Acetaminophen 325 MG TAB PO PRN (18:35)
[2018-05-18] MEDS ORDERED: Ondansetron HCl/PF 4 MG/2 ML Vial IVP PRN (18:35)
[2018-05-18] MEDS ORDERED: Ondansetron ODT 4 MG TAB SL PRN (18:35)
[2018-05-18 19:28] VITALS: BMI 30.2
[2018-05-19 05:51] LABS: #Eosinphils 0.1 thou/uL (0.0-0.7); #Lymphocytes 1.9 thou/uL (1.20-3.40); #Monocytes 0.6 thou/uL (0.11-0.59); #Neutrophils 8.9 thou/uL (1.40-6.50); %Basophils 0.3 % (0.0-1.0); %Eosinophils 1.1 % (0.0-10.0); %Lymphocytes 16.6 % (21.0-51.0); %Monocytes 5.2 % (0.0-10.0); %Neutrophils 76.7 % (42.0-75.0); Hemoglobin 8.5 g/dL (12.0-16.0); Hypochromia SLIGHT = 6-15 cells (100X) (0-5/hpf); MDiff Complete? YES; Mean Corpuscular HGB CONC 29.2 g/dL (32.0-36.0); Mean Corpuscular Hemoglobin 20.1 pg (27.0-31.0); Mean Corpuscular Volume 68.9 fL (78.0-98.0); Microcytosis MODERATE=15-30 cells (100X) (0-5/hpf); PLT Morphology Comment Appears Adequate; Platelet Count 359 thou/uL (130-400); RBC Distribution Width 16.5 % (11.5-14.5); Red Blood Cell (RBC) Count 4.19 mill/uL (4.20-5.40); White Blood Cell (WBC) Count 11.6 thou/uL (4.8-10.8)
[2018-05-19 12:55] LABS: Reticulocyte Count 1.2 % (0.5-1.5)
[2018-05-19] MEDS ORDERED: Acetaminophen 325 MG TAB PO PRN (15:24)
[2018-05-19] MEDS ORDERED: Ondansetron ODT 4 MG TAB PO PRN (15:24)
[2018-05-19] MEDS ORDERED: Cyclobenzaprine 10 MG TAB PO PRN (15:27)
[2018-05-19] MEDS ORDERED: Furosemide 20 MG TAB PO PRN (15:27)
[2018-05-19] MEDS: Mometasone/Formoterol 60 PUFF AER INH SCH (18:09)
[2018-05-19] MEDS: cefTRIAXone\\ROCEPHIN 1 GM in Sodium Chloride 0.9% 100 ML IVPB SCH (18:27)
[2018-05-19 18:55] LABS: Anion Gap 17 mmol/L (10-20); BUN (Urea Nitrogen) 18 mg/dL (9.8-20.1); Calc. Creatinine Clearance 72 mL/min (70-130); Calcium 9.4 mg/dL (7.8-10.44); Carbon Dioxide 22 mmol/L (23-31); Chloride 101 mmol/L (98-107); Estimated GFR-MDRD 67; Glucose 141 mg/dL (83-110); Potassium 3.8 mmol/L (3.5-5.1); Sodium 136 mmol/L (136-145)
[2018-05-19 19:31] LABS: Hemoglobin 8.9 g/dL (12.0-16.0); Mean Corpuscular HGB CONC 29.1 g/dL (32.0-36.0); Mean Corpuscular Hemoglobin 20.2 pg (27.0-31.0); Mean Corpuscular Volume 69.5 fL (78.0-98.0); Mean Platelet Volume 6.3 fL (7.4-10.4); Platelet Count 371 thou/uL (130-400); RBC Distribution Width 16.9 % (11.5-14.5); Red Blood Cell (RBC) Count 4.39 mill/uL (4.20-5.40); White Blood Cell (WBC) Count 11.4 thou/uL (4.8-10.8)
[2018-05-19 19:32] LABS: #Eosinphils 0.1 thou/uL (0.0-0.7); #Lymphocytes 1.5 thou/uL (1.20-3.40); #Monocytes 0.5 thou/uL (0.11-0.59); #Neutrophils 9.3 thou/uL (1.40-6.50); %Basophils 0.3 % (0.0-1.0); %Eosinophils 0.8 % (0.0-10.0); %Lymphocytes 13.3 % (21.0-51.0); %Neutrophils 81.6 % (42.0-75.0)
[2018-05-19] MEDS: Famotidine 20 MG TAB PO SCH (20:31)
[2018-05-19] MEDS: Gabapentin 400 MG CAP PO SCH (20:32)
[2018-05-19] MEDS: Carvedilol 6.25 MG TAB PO SCH (20:32)
[2018-05-19] MEDS: Amlodipine 5 MG TAB PO SCH (20:32)
[2018-05-19] MEDS: GARLIC 1000 MG PO SCH (20:34)
[2018-05-19] MEDS ORDERED: rOPINIRole HCl 1 MG TAB PO SCH (21:00)
[2018-05-19 22:06] LABS: Hypochromia SLIGHT = 6-15 cells (100X) (0-5/hpf); MDiff Complete? YES; Microcytosis MODERATE=15-30 cells (100X) (0-5/hpf); PLT Morphology Comment Appears Adequate
--- NOTE | 2018-05-19 23:05 | HP ---
DATE OF ADMISSION: 05/18/2018 HISTORY OF PRESENT ILLNESS: The patient is a 72-year-old white female, well known to myself, with mu ltiple recurrent admissions to the hospital for sepsis with multiple etiologies including pneumonia, recurrent urinary tract infections, and cellulitis. She has been on prophylaxis against recurrent ur inary tract infection, had been doing well until the night prior to admission, she awakened with a ch ill, previous 2 episodes of sepsis. This did not respond to Tylenol and she was brought in the emerg ency room that afternoon and was found to have a leukocytosis of 17,300 with a shift to the left and with a left lower lobe infiltrate. Her urine that time did not show any acute infection and her exam ination otherwise was unremarkable, however. Because of her history of recurrent sepsis, she was adm itted to the hospital and started on IV Rocephin and IV fluids and has begun to feel much better. Joao sanabria has had some cough with no sputum production, no nausea and vomiting. No diarrhea, no dysuria or h ematuria. PAST MEDICAL HISTORY: Remarkable for history of coronary artery disease, degenerative disk disease o f lumbar spine, restless leg syndrome, gastroesophageal reflux, hypertension. PAST SURGICAL HISTORY: Positive for 2 angioplasties in 1996, a laminectomy in 2007. ALLERGIES: She has history of allergies to GUSTAVO INHIBITORS with angioedema. FAMILY HISTORY: Negative for immune dysfunction, premature coronary artery disease. SOCIAL HISTORY: She is . She is a nonsmoker, nondrinker, does not use recreational drugs. MEDICATIONS: At this time include amlodipine 5 mg daily, aspirin 81 daily, carvedilol 12.5 twice juan ramon ly, vitamin D 1000 units twice daily, Flexeril 10 mg 3 times daily, estradiol 1 mg daily, Advair 1 pu ff 3 times daily, furosemide 20 daily, gabapentin 300 in the morning and 600 in the afternoon, Myrbet riq 50 mg daily, omeprazole 20 mg daily, ropinirole 3 mg nightly and 2 mg in the morning, and trimeth oprim 100 mg daily. REVIEW OF SYSTEMS: HEENT: She denies any headaches, dizziness, change in vision or hearing, hoarsen ess or dysphagia. Pulmonary: She has a mild cough with no sputum production and has had some pleuri tic left-sided chest pain. She has no wheezing. Cardiovascular: She denies chest pain, orthopnea, paroxysmal nocturnal dyspnea, or edema. Gastrointestinal: She denies nausea, vomiting, diarrhea, co nstipation, or abdominal pain. Genitourinary: She denies dysuria, hematuria, or nocturia. Musculos keletal: She denies stiffness or swelling in joints or extremities or skin rash. Neurologic: She d enies localized numbness or weakness in joints or extremities. PHYSICAL EXAMINATION: GENERAL: Patient is an elderly white female, appears alert, oriented, lucid, in no acute distress. VITAL SIGNS: Blood pressure of 166/69, temperature is 98, pulse 83, respirations 20, O2 sats 95% on room air. HEENT: Pupils are equal, round, and react to light and accommodation. Sclerae are anicteric, Conjun ctivae pale. Oral mucous membranes well hydrated. NECK: Supple. There are no nodes or masses. JVP is not elevated. LUNGS: Clear. CARDIAC: Regular rhythm. No gallops or murmurs. ABDOMEN: Soft, nontender with no masses or organomegaly. SKIN/EXTREMITIES: Display no edema, clubbing, or cyanosis. NEUROLOGICAL: Intact. LABORATORY AND X-RAY FINDINGS: Shows white count on admission of 17,300, hematocrit 31, hemoglobin 9 .2, platelet count 384,000. Sodium 135, potassium 3.7, chloride 101, bicarbonate 21, BUN 21, creatin ine 0.9, glucose 105. Lactate 1.4, calcium 9.3, total bilirubin 0.3, AST 16, ALT 13, CK-MB 1.2, trop onin 0.010. Urinalysis showed 4-6 white cells, 0-3 red cells, 2+ bacteria. Chest x-ray shows early left lower lobe infiltrate. ASSESSMENT: 1. A 72-year-old white female with a history of recurrent sepsis syndrome, presents with sepsis synd valdemar with tachycardia, leukocytosis, fever, chills, and left lower lobe infiltrate felt to be due cau sing her symptomatology. She will be started on IV fluids and Rocephin and appears to have improved already in the emergency room; however, because of her history of severe sepsis in the past, we will monitor for several days. 2. Recurrent urinary tract infection appears to be controlled with trimethoprim, we will continue on this. 3. Degenerative disk disease, stable on gabapentin and we will continue on this. 4. History of coronary artery disease with no evidence of recurrent symptomatology at this time. PLAN: 1. IV Rocephin daily 1 gram. 2. Repeat CBC, base met profile in the a.m. 3. Restart all home medications. 4. Obtain results of urine and blood culture.
[2018-05-20] MEDS: Mometasone/Formoterol 60 PUFF AER INH SCH ×2 (05:53→18:13)
[2018-05-20] MEDS ORDERED: rOPINIRole HCl 1 MG TAB PO SCH (09:00)
[2018-05-20] MEDS: Carvedilol 6.25 MG TAB PO SCH ×2 (09:19→21:19)
[2018-05-20] MEDS: Estradiol 1 MG TAB PO SCH (09:20)
[2018-05-20] MEDS: Gabapentin 300 MG CAP PO SCH (09:21)
[2018-05-20] MEDS: Famotidine 20 MG TAB PO SCH ×2 (09:21→21:19)
[2018-05-20] MEDS: Gabapentin 400 MG CAP PO SCH ×3 (09:22→21:18)
[2018-05-20] MEDS: Lactinex Tablet PO SCH (09:23)
[2018-05-20] MEDS: GARLIC 1000 MG PO SCH ×2 (09:26→21:17)
[2018-05-20] MEDS ORDERED: Cyclobenzaprine 10 MG TAB PO PRN (10:30)
[2018-05-20] MEDS ORDERED: Gabapentin 300 MG CAP PO SCH (15:00)
[2018-05-20] MEDS: rOPINIRole HCl 1 MG TAB PO SCH ×2 (15:09→21:19)
[2018-05-20] MEDS: cefTRIAXone\\ROCEPHIN 1 GM in Sodium Chloride 0.9% 100 ML IVPB SCH (18:16)
--- NOTE | 2018-05-20 19:50 | PRG ---
DATE OF SERVICE: 05/20/2018 SUBJECTIVE: The patient feels well. No fever, chills, sweats, cough, shortness of breath, nausea, v omiting, abdominal pain. OBJECTIVE: VITAL SIGNS: Temperature 96.6, blood pressure 136/60, pulse 72, respirations 18, O2 sats 94% on room air. LUNGS: Clear. CARDIAC: Shows regular rhythm. No gallops or murmurs. ABDOMEN: Soft, nontender. LABORATORY DATA: Cultures show a blood culture still no growth. Urine culture showing gram-negative aishwarya. ASSESSMENT: 1. Resolving pneumonia and sepsis. 2. Stable recurrent urinary colonization. 3. Stable coronary artery disease. 4. Stable degenerative disk disease. PLAN: Discontinue Rocephin and started on cefdinir 300 twice daily. Await results of cultures. Pro bable discharge tomorrow if no fever and continued to feel well.
[2018-05-20] MEDS: Cefdinir 300 MG CAP PO SCH (21:19)
[2018-05-20] MEDS: Amlodipine 5 MG TAB PO SCH (21:20)
[2018-05-21] MEDS: Mometasone/Formoterol 60 PUFF AER INH SCH ×2 (05:51→18:34)
[2018-05-21 08:08] VITALS: TEMP 96.1
[2018-05-21] MEDS: GARLIC 1000 MG PO SCH (09:19)
[2018-05-21] MEDS: Estradiol 1 MG TAB PO SCH (09:21)
[2018-05-21] MEDS: Famotidine 20 MG TAB PO SCH (09:21)
[2018-05-21] MEDS: Lactinex Tablet PO SCH (09:21)
[2018-05-21] MEDS: Carvedilol 6.25 MG TAB PO SCH (09:21)
[2018-05-21] MEDS: Cefdinir 300 MG CAP PO SCH (09:21)
[2018-05-21] MEDS: Gabapentin 300 MG CAP PO SCH (09:30)
[2018-05-21 09:40] VITALS: BP 136/60
[2018-05-21] MEDS: Gabapentin 400 MG CAP PO SCH (15:23)
[2018-05-21] MEDS: rOPINIRole HCl 1 MG TAB PO SCH (15:24)
[2018-05-21] MEDS ORDERED: Albuterol Sulfate 2.5 mg/3 ml Neb NEB PRN (18:16)
[2018-05-21] MEDS ORDERED: guaiFENesin ER 600 MG TAB PO SCH (21:00)
[2018-05-21] MEDS ORDERED: Cephalexin 500 MG CAP PO SCH (21:00)
[2018-05-21] MEDS ORDERED: Vancomycin HCl 25 MG/ML Oral PO SCH (23:59)
--- NOTE | 2018-05-22 05:53 | DIS ---
DATE OF ADMISSION: 05/18/2018 DATE OF DISCHARGE: 05/21/2018 FINAL DIAGNOSES: 1. Pneumonia, sepsis syndrome. 2. Coronary artery disease. 3. Recurrent urinary tract infections. 4. Degenerative disk disease of lumbar spine. 5. New onset of diarrhea. 6. Hypertension. HOSPITAL COURSE: Patient is a 72-year-old white female well known to myself with [facility] with multiple etiologies including pneumonia, recurrent uri nary tract infections, and Strep cellulitis. She had been doing well on prophylactic medication with trimethoprim being followed by Dr. Vasquez for urinary tract infection. She presents, however, in the emergency room with acute onset of chills, fever, found to have a leukocytosis with a left shift, left lower lobe infiltrate, and was treated for acute onset of pneumonia and possibly early sepsis, although lactate was normal. She was started on Rocephin, IV fluids, responded immediately began to feel much better. Lactate as mentioned above was normal on admission is 1.4 with a white count was 1 7,300. BMP showed sodium 135, potassium 3.7, chloride 101, bicarbonate 21. By the next morning, her white count was down to 11,400. She felt well and was ambulating vee. She was continued on Roceph in 1 more day. Urine culture returned Klebsiella, but blood cultures returned negative. She was swi tched to oral cefdinir. The next day continued to of being discharged home when she began to d evelop significant diarrhea. This was evaluated for C. diff with the results pending. She will be d ischarged home on Keflex, cefdinir where she does nocturnist to have C. diff and at that time we will b e discharged on vancomycin. She will also be given a nebulizer treatment as needed at home. She did have some cough, which responded to this in the hospital. She will be continued on her prehospitali zation medications of amlodipine 5 daily, aspirin 81 daily, carvedilol 12.5 twice daily, Flexeril 10 mg 3 times daily, estradiol 1 mg daily, famotidine 20 twice daily, Advair 1 puff twice daily, gabapen tin 600 mg twice daily and 1200 mg at 1500 and 2100, ropinirole 2 mg nightly, trimethoprim 100 mg juan ramon ly. Discharge, her sodium 136, potassium 3.8, chloride 101, bicarbonate 22, BUN 18, creatinine 0.84. BNP was 88. CK-MB were normal. Lactate as mentioned above 1.4. She will be seen by myself in 1-2 weeks and follow up with her urologist, Dr. Vasquez. We will consult with me tonight or tomorrow w hen the results of C. diff is back to determine need for vancomycin orally or just to continue on the Keflex. She is .
== END 2018-05-21 18:20 | disposition home or self-care (01) | DRG 871 ==
LOC: NAV ERS 15:46 → NAV ACUTE 18:34
PROVIDERS: ADMIT Internal Medicine; ATTEND Internal Medicine
DX: A41.9 Sepsis, unspecified organism (principal); J18.9 Pneumonia, unspecified organism; N39.0 Urinary tract infection, site not specified; M47.896 Other spondylosis, lumbar region; Z87.01 Personal history of pneumonia (recurrent); G25.81 Restless legs syndrome; K21.9 Gastro-esophageal reflux disease without esophagitis; I25.10 Atherosclerotic heart disease of native coronary artery without angina pectoris; R19.7 Diarrhea, unspecified; I10 Essential (primary) hypertension; Z91.81 History of falling
CPT/HCPCS: 36415; 71045; 80048; 80053; 81003; 81015; 82553; 83605; 83880; 84484; 85025; 85046; 87040; 87077; 87086; 87186; 87324; 87449; 93005; 94640; 94760; 96374; 96375; A4216; J0456; J0696; J7050; J7620

== ENCOUNTER 2018-12-07 20:08 | Emergency (ER) | payer MEDICARE ==
[2018-12-07 20:38] LABS: Bilirubin Negative (Negative); Blood, Urine Small (Negative); Clarity Cloudy (Clear); Glucose, Urine (Dipstick) Negative (Negative); Leukocyte Large (Negative); Nitrite Negative (Negative); Protein, Urine (Dipstick) 100 mg/dL (Neg-Trace); Specific Gravity, Urine 1.025 (1.005-1.030); Urobilinogen 0.2 mg/dL (0.2-1.0)
[2018-12-07 20:41] LABS: Bacteria/HPF 3+ HPF (None Seen); WBC/HPF 21-50 HPF (0-3)
== END 2018-12-07 20:55 | disposition home or self-care (01) ==
LOC: NAV ERS 20:08
DX: N30.90 Cystitis, unspecified without hematuria (principal); J20.9 Acute bronchitis, unspecified; I10 Essential (primary) hypertension; I25.10 Atherosclerotic heart disease of native coronary artery without angina pectoris; Z79.899 Other long term (current) drug therapy; Z79.82 Long term (current) use of aspirin
CPT/HCPCS: 81003; 81015; 87077; 87086; 87186; 99283

== ENCOUNTER 2018-12-09 00:41 | Emergency (ER) | payer MEDICARE ==
[2018-12-09] MEDS ORDERED: Benzonatate 100 MG CAP ONE (01:23)
--- NOTE | 2018-12-09 08:02 | RAD ---
TWO VIEWS OF THE CHEST: COMPARISON: 10/27/2017. HISTORY: Cough for 1 week. FINDINGS: Two views of the chest show normal sized cardiomediastinal silhouette. There is no evidence of consol idation, mass, or pleural effusion. The bones are unremarkable. IMPRESSION: No evidence of acute cardiopulmonary disease. POS: [facility]
== END 2018-12-09 01:30 | disposition home or self-care (01) ==
LOC: NAV ERS 00:41
DX: J20.9 Acute bronchitis, unspecified (principal); Z87.01 Personal history of pneumonia (recurrent); Z86.73 Personal history of transient ischemic attack (TIA), and cerebral infarction without residual deficits; I10 Essential (primary) hypertension; Z79.82 Long term (current) use of aspirin; Z79.891 Long term (current) use of opiate analgesic; Z79.899 Other long term (current) drug therapy
CPT/HCPCS: 71046

== ENCOUNTER 2019-02-08 14:47 | Emergency (ER) | payer MEDICARE ==
--- NOTE | 2019-02-08 15:49 | RAD ---
EXAM: Two views chest PROVIDED CLINICAL HISTORY: Dyspnea COMPARISON: 12/09/2018 FINDINGS: Cardiac silhouette and pulmonary vasculature are within normal limits. Linear density is seen overly ing the anterior right middle lobe which was not seen on prior study is likely attributable to atelectasis. The lungs are otherwise clear. The osseous structures have a normal appearance. IMPRESSION: Interval development of atelectasis in the anterior aspect right middle lobe. The lungs are otherwise clear without evidence of an acute cardiopulmonary process..
[2019-02-08 16:09] LABS: Bilirubin Negative (Negative); Blood, Urine Negative (Negative); Clarity Clear (Clear); Glucose, Urine (Dipstick) Negative (Negative); Leukocyte Moderate (Negative); Nitrite Positive (Negative); Protein, Urine (Dipstick) Trace mg/dL (Neg-Trace); Specific Gravity, Urine 1.015 (1.005-1.030); Urobilinogen 0.2 mg/dL (0.2-1.0); pH, Urine 6.5 (5.0-9.0)
[2019-02-08 16:21] LABS: ALT (SGPT) 16 U/L (8-55); AST (SGOT) 22 U/L (5-34); Albumin 3.5 g/dL (3.4-4.8); Alkaline Phosphatase 107 U/L (40-150); Anion Gap 16 mmol/L (10-20); BUN (Urea Nitrogen) 25 mg/dL (9.8-20.1); Bilirubin, Total 0.2 mg/dL (0.2-1.2); Calc. Creatinine Clearance 0 mL/min (70-130); Carbon Dioxide 24 mmol/L (23-31); Chloride 103 mmol/L (98-107); Estimated GFR-MDRD 59; Globulin 3.1 g/dL (2.4-3.5); Glucose 107 mg/dL (83-110); Potassium 3.8 mmol/L (3.5-5.1); Protein, Total 6.6 g/dL (6.0-8.3); Sodium 139 mmol/L (136-145)
[2019-02-08 16:28] LABS: #Basophils 0.1 thou/uL (0.0-0.2); #Eosinphils 0.1 thou/uL (0.0-0.7); #Lymphocytes 1.5 thou/uL (1.20-3.40); #Monocytes 0.5 thou/uL (0.11-0.59); #Neutrophils 5.4 thou/uL (1.40-6.50); %Basophils 0.8 % (0.0-1.0); %Eosinophils 0.8 % (0.0-10.0); %Lymphocytes 19.6 % (21.0-51.0); %Monocytes 7.1 % (0.0-10.0); %Neutrophils 71.7 % (42.0-75.0); Hemoglobin 7.5 g/dL (12.0-16.0); Mean Corpuscular HGB CONC 29.2 g/dL (32.0-36.0); Mean Corpuscular Hemoglobin 19.5 pg (27.0-31.0); Mean Corpuscular Volume 66.7 fL (78.0-98.0); Mean Platelet Volume 5.9 fL (7.4-10.4); Platelet Count 475 thou/uL (130-400); RBC Distribution Width 17.1 % (11.5-14.5); Red Blood Cell (RBC) Count 3.85 mill/uL (4.20-5.40); White Blood Cell (WBC) Count 7.5 thou/uL (4.8-10.8)
[2019-02-08 16:32] LABS: Bacteria/HPF 3+ HPF (None Seen); RBC/HPF 0-3 HPF (0-3); Squamous Epithelial 0-3 HPF (0-3)
[2019-02-08 16:58] LABS: MDiff Complete? YES; Microcytosis MODERATE=15-30 cells (100X) (0-5/hpf); Platelet Morphology Comment Appears Adequate; Polychromasia SLIGHT = 2-3 cells (100X) (0-2/hpf)
[2019-02-08] MEDS ORDERED: Cipro 250 MG TAB ONE (17:20)
== END 2019-02-08 17:41 | disposition home or self-care (01) ==
LOC: NAV ERS 14:47
DX: N39.0 Urinary tract infection, site not specified (principal); D64.9 Anemia, unspecified; R60.0 Localized edema; I10 Essential (primary) hypertension; I25.10 Atherosclerotic heart disease of native coronary artery without angina pectoris; Z79.899 Other long term (current) drug therapy; Z79.82 Long term (current) use of aspirin; Z79.51 Long term (current) use of inhaled steroids
CPT/HCPCS: 51701; 71046; 80053; 81003; 81015; 83880; 84484; 85025; 87077; 87086; 87186; 93005; 94760; A4353

== ENCOUNTER 2021-02-05 08:56 | Emergency (ER) | payer MEDICARE ==
[2021-02-05 09:42] LABS: #Eosinphils 0.1 thou/uL (0.0-0.7); #Lymphocytes 1.4 thou/uL (1.20-3.40); #Monocytes 0.5 thou/uL (0.11-0.59); #Neutrophils 3.4 thou/uL (1.40-6.50); %Basophils 0.6 % (0.0-1.0); %Eosinophils 1.7 % (0.0-10.0); %Lymphocytes 25.9 % (21.0-51.0); %Monocytes 8.5 % (0.0-10.0); %Neutrophils 63.2 % (42.0-75.0); Hemoglobin 11.7 g/dL (12.0-16.0); Mean Corpuscular HGB CONC 30.3 g/dL (32.0-36.0); Mean Corpuscular Hemoglobin 30.3 pg (27.0-31.0); Mean Platelet Volume 7.2 fL (7.4-10.4); Platelet Count 234 thou/uL (130-400); RBC Distribution Width 13.8 % (11.5-14.5); Red Blood Cell (RBC) Count 3.85 mill/uL (4.20-5.40); White Blood Cell (WBC) Count 5.4 thou/uL (4.8-10.8)
[2021-02-05 09:44] LABS: Bilirubin Negative (Negative); Blood, Urine Trace (Negative); Clarity Slightly Cloudy (Clear); Glucose, Urine (Dipstick) Negative (Negative); Ketone, Urine Negative (Negative); Leukocyte Trace (Negative); Nitrite Negative (Negative); Protein, Urine (Dipstick) 100 mg/dL (Neg-Trace); Urobilinogen 0.2 mg/dL (Less than 2)
[2021-02-05] MEDS ORDERED: cefTRIAXone\\ROCEPHIN 2 GM VIAL ONE (09:48)
[2021-02-05] MEDS ORDERED: Sodium Chloride 0.9% 100 ML ONE (09:48)
[2021-02-05 09:56] LABS: Bacteria/HPF None Seen HPF (None Seen); RBC/HPF 0-3 HPF (0-3); Squamous Epithelial 0-3 HPF (0-3); WBC/HPF Greater Than 50 HPF (0-3)
[2021-02-05 09:57] LABS: ALT (SGPT) 13 U/L (8-55); AST (SGOT) 14 U/L (5-34); Albumin 3.3 g/dL (3.4-4.8); Alkaline Phosphatase 75 U/L (40-110); Anion Gap 11 mmol/L (10-20); BUN (Urea Nitrogen) 16 mg/dL (9.8-20.1); Bilirubin, Total 0.3 mg/dL (0.2-1.2); Calc. Creatinine Clearance 0 mL/min (70-130); Calcium 8.4 mg/dL (7.8-10.44); Carbon Dioxide 28 mmol/L (23-31); Chloride 102 mmol/L (98-107); Globulin 2.7 g/dL (2.4-3.5); Glucose 96 mg/dL (83-110); Potassium 4.1 mmol/L (3.5-5.1); Sodium 137 mmol/L (136-145)
== END 2021-02-05 11:40 | disposition home or self-care (01) ==
LOC: NAV ERS 08:56
DX: N39.0 Urinary tract infection, site not specified (principal); I10 Essential (primary) hypertension; Z79.899 Other long term (current) drug therapy
CPT/HCPCS: 80053; 81003; 81015; 85025; 96365; J0696; J3490

== ENCOUNTER 2021-03-08 12:04 | Outpatient (CLI) | payer MEDICARE | END 2021-03-08 12:05 | disposition home or self-care (01) | LOC: NAV RAD 12:04 | PROVIDERS: ATTEND Neurological Surgery | DX: M54.2 Cervicalgia (principal); Z98.890 Other specified postprocedural states | CPT/HCPCS: 72050 ==

== ENCOUNTER 2023-03-14 20:28 | Emergency (ER) | payer MEDICARE ==
[2023-03-14] MEDS ORDERED: Acetaminophen 500 MG TAB ONE (21:19)
== END 2023-03-14 21:34 | disposition home or self-care (01) ==
LOC: NAV ERS 20:28
DX: S93.402A Sprain of unspecified ligament of left ankle, initial encounter (principal); I10 Essential (primary) hypertension; I25.10 Atherosclerotic heart disease of native coronary artery without angina pectoris; X50.0XXA Overexertion from strenuous movement or load, initial encounter; Y93.01 Activity, walking, marching and hiking

== ENCOUNTER 2025-04-02 12:39 | Outpatient (CLI) | payer MEDICARE | END 2025-04-02 12:40 | disposition home or self-care (01) | LOC: NAV RAD 12:39 | PROVIDERS: ATTEND Nurse Practitioner Family | DX: M79.641 Pain in right hand (principal); M18.11 Unilateral primary osteoarthritis of first carpometacarpal joint, right hand; M19.041 Primary osteoarthritis, right hand ==